=== PATIENT | male | born 1955 | race Caucasian/White ===

== ENCOUNTER 2016-10-23 06:00 | Emergency (ER) | payer OTHER ==
[~2016-10-23] VITALS: Ht 170.2 cm; Wt 75.7 kg
--- NOTE | 2016-10-23 06:01 | NUR ---
BIBA BLS TO ER BED 4
[2016-10-23 06:04] VITALS: BP 179/109
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
[2016-10-23] MEDS ORDERED: IBUPROFEN 600 MG TAB PO ONE (06:20)
[2016-10-23] MEDS ORDERED: HYDROcodone/APAP 5/325 MG 1 TAB TAB PO ONE (06:25)
--- NOTE | 2016-10-23 06:32 | NUR ---
PT TAKEN TO X-RAY
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
[2016-10-23 07:31] VITALS: BP 169/109
== END 2016-10-23 07:31 | disposition home or self-care (01) ==
LOC: MED 06:00
DX: S20.212A Contusion of left front wall of thorax, initial encounter (principal); S16.1XXA Strain of muscle, fascia and tendon at neck level, initial encounter; M54.5 Low back pain; V89.2XXA Person injured in unspecified motor-vehicle accident, traffic, initial encounter; Y93.89 Activity, other specified; Y92.89 Other specified places as the place of occurrence of the external cause; Y99.8 Other external cause status
CPT/HCPCS: 71120; 72050; 72110; 99284